=== PATIENT | male | born 1960 | race Caucasian/White ===

== ENCOUNTER 2017-10-02 16:10 | Observation (INO) | payer OTHER ==
--- NOTE | 2017-10-02 17:03 | C.PDOC ---
History Of Present Illness <Jennie Santiago - Last Filed: 10/02/17 19:03> <Janak Kirk - Last Filed: 10/02/17 20:29> 56 y/o male presents to the ER complaining of left sided chest pain which radiates to the left side- neck, left shoulder, and left arm for the past few days. Patient states that he went to his PMD and he prescribed him Naproxen without relief. Patient reports that he has some mild dizziness and he feels " heaviness" in the back of his head. Denies having SOB, cough, fever, and chills. (Jennie Santiago) History Per: Patient History/Exam Limitations: no limitations Onset/Duration Of Symptoms: Days Current Symptoms Are (Timing): Still Present Severity: Moderate <Jennie Santiago - Last Filed: 10/02/17 19:03> <Janak Kirk - Last Filed: 10/02/17 20:29> Time Seen by Provider: 10/02/17 16:18 Chief Complaint (Nursing): Chest Pain Past Medical History Reviewed: Historical Data, Nursing Documentation, Vital Signs - Medical History PMH: No Chronic Diseases Surgical History: No Surg Hx Family History: States: No Known Family Hx - Social History Hx Alcohol Use: No Hx Substance Use: No - Immunization History Hx Tetanus Toxoid Vaccination: No Hx Influenza Vaccination: No Hx Pneumococcal Vaccination: No <Jennie Santiago - Last Filed: 10/02/17 19:03> Vital Signs: Last Vital Signs Temp 98.2 F 10/02/17 19:50 Pulse 62 10/02/17 19:50 Resp 18 10/02/17 19:50 BP 117/75 10/02/17 19:50 Pulse Ox 96 10/02/17 19:50 Review Of Systems Except As Marked, All Systems Reviewed And Found Negative. Constitutional: Negative for: Fever, Chills Cardiovascular: Positive for: Chest Pain Respiratory: Negative for: Cough, Shortness of Breath Neurological: Positive for: Dizziness <Jennie Santiago - Last Filed: 10/02/17 19:03> Physical Exam - Physical Exam Appears: Non-toxic, No Acute Distress Skin: Normal Color, Warm, Diaphoretic Head: Atraumatic, Normacephalic Eye(s): bilateral: Normal Inspection Nose: Normal Oral Mucosa: Moist Neck: Supple Chest: Symmetrical Cardiovascular: Rhythm Regular Respiratory: Normal Breath Sounds, No Rales, No Rhonchi, No Wheezing Extremity: Normal ROM Neurological/Psych: Oriented x3, Normal Speech <Jennie Santiago - Last Filed: 10/02/17 19:03> ED Course And Treatment - Laboratory Results Result Diagrams: 10/02/17 17:36 10/02/17 17:36 ECG: Interpreted By Me, Viewed By Me ECG Rhythm: Sinus Rhythm Interpretation Of ECG: NSR with T wave inversion in Lead III and non specific T wave changes. Rate From EC O2 Sat by Pulse Oximetry: 97 (RA) Pulse Ox Interpretation: Normal - Radiology CXR: Interpreted by Me, Viewed By Me CXR Interpretation: Yes: No Acute Disease Progress Note: Labs, UA, EKG, and CXR ordered. Patient treated with Aspirin PO. <Jennie Santiago - Last Filed: 10/02/17 19:03> - Laboratory Results Result Diagrams: 10/02/17 17:36 10/02/17 17:36 <Janak Kirk - Last Filed: 10/02/17 20:29> Disposition - Disposition Disposition Time: 19:04 <Jennie Santiago - Last Filed: 10/02/17 19:03> Discussed With DrEloisa: Svetlana Rodriguez Comment: acceptd the pt on his service and took over the care at 8:29PM Doctor Will See Patient In The: Hospital Counseled Patient/Family Regarding: Studies Performed, Diagnosis <Janak Kirk - Last Filed: 10/02/17 20:29> - Disposition Disposition: HOSPITALIZED Condition: FAIR Forms: [facility] ([employer]) - Clinical Impression Clinical Impression: Chest pain - PA / PILLOW FILLER / Resident Statement MD/DO has reviewed & agrees with the documentation as recorded. - Scribe Statement The provider has reviewed the documentation as recorded by the Scribe <Jennie Santiago - Last Filed: 10/02/17 19:03> <Janak Kirk - Last Filed: 10/02/17 20:29> - Scribe Statement Danielito Salgado Provider Attestation All medical record entries made by the Scribe were at my direction and personally dictated by me. I have reviewed the chart and agree that the record accurately reflects my personal performance of the history, physical exam, medical decision making, and the department course for this patient. I have also personally directed, reviewed, and agree with the discharge instructions and disposition. (Jennie Santiago) Physician Patient Turnover Patient Signed Over To: Janak Kirk Handoff Comments: pending PMD call back and dispo <Jennie Santiago - Last Filed: 10/02/17 19:03> Decision To Admit <Jennie Santiago - Last Filed: 10/02/17 19:03> - Pt Status Changed To: Hospital Disposition Of: Observation - . Bed Request Type: Telemetry Admitting Physician: Svetlana Rodriguez <Janak Kirk - Last Filed: 10/02/17 20:29> - . Patient Diagnosis: Chest pain
--- NOTE | 2017-10-02 17:46 | RAD ---
Date of service: 10/02/2017 PROCEDURE: CHEST RADIOGRAPH, 1 VIEW HISTORY: chest pain COMPARISON: Chest radiograph dated 04/27/2015. FINDINGS: LUNGS: Clear. PLEURA: No pneumothorax or pleural fluid seen. CARDIOVASCULAR: Normal. OSSEOUS STRUCTURES: Unchanged. VISUALIZED UPPER ABDOMEN: Normal. OTHER FINDINGS: None. IMPRESSION: No active disease.
[2017-10-02 17:47] LABS: BASO % 0.8 % (0.0-2.0); HEMOGLOBIN 14.5 g/dL (12.0-18.0); LYMPH # 1.1 K/uL (1.0-4.3); LYMPH % 29.8 % (20.0-40.0); MEAN CELL VOLUME 91.5 fL (80.0-94.0); MEAN CORPUSCULAR HEMOGLOBIN 32.1 pg (27.0-31.0); MEAN CORPUSCULAR HGB CONC 35.1 g/dL (33.0-37.0); MEAN PLATELET VOLUME 9.8 fL (7.2-11.7); MONO # 0.3 K/uL (0.0-0.8); NEUT # 2.2 K/uL (1.8-7.0); NEUT % 61.4 % (50.0-75.0); NRBC % 0.1 % (0.0-2.0); RBC 4.52 Mil/uL (4.40-5.90); RED CELL DISTRIBUTION WIDTH 12.9 % (11.5-14.5); WHITE BLOOD COUNT 3.6 K/uL (4.8-10.8)
[2017-10-02 17:52] LABS: URINE BILIRUBIN NEGATIVE (NEGATIVE); URINE BLOOD NEGATIVE (NEGATIVE); URINE CLARITY Clear (Clear); URINE COLOR Straw (YELLOW); URINE GLUCOSE (UA) NORMAL (Normal); URINE LEUKOCYTE ESTERASE NEG Leu/uL (Negative); URINE PROTEIN NEGATIVE (NEGATIVE); URINE UROBILINOGEN NORMAL mg/dL (0.2-1.0)
[2017-10-02 17:53] LABS: PROTHROMBIN TIME 11.1 SECONDS (9.7-12.2)
[2017-10-02 17:59] LABS: ALB/GLOB RATIO 1.4 (1.0-2.1); ALBUMIN 3.9 g/dL (3.5-5.0); ALT/SGPT 40 U/L (21-72); AST/SGOT 22 U/L (17-59); BLOOD UREA NITROGEN 19 mg/dL (9-20); CALCIUM 8.8 mg/dl (8.6-10.4); GFR AFRICAN-AMERICAN > 60; GFR NON-AFRICAN AMERICAN > 60
[2017-10-02 18:09] LABS: CK-MB 0.82 ng/mL (0.0-3.38)
[2017-10-02] MEDS ORDERED: Morphine 4 MG/ML VIAL ONE (18:40)
[2017-10-03 01:55] LABS: CK-MB 0.66 ng/mL (0.0-3.38)
[2017-10-03 07:17] LABS: BASO % 0.5 % (0.0-2.0); EOS # 0.1 K/uL (0.0-0.7); EOS % 1.3 % (0.0-4.0); HEMOGLOBIN 15.1 g/dL (12.0-18.0); LYMPH # 1.7 K/uL (1.0-4.3); LYMPH % 29.6 % (20.0-40.0); MEAN CELL VOLUME 91.6 fL (80.0-94.0); MEAN CORPUSCULAR HEMOGLOBIN 31.9 pg (27.0-31.0); MEAN CORPUSCULAR HGB CONC 34.9 g/dL (33.0-37.0); MEAN PLATELET VOLUME 10.1 fL (7.2-11.7); MONO # 0.4 K/uL (0.0-0.8); MONO % 6.8 % (0.0-10.0); NEUT # 3.5 K/uL (1.8-7.0); NEUT % 61.8 % (50.0-75.0); NRBC % 0.3 % (0.0-2.0); RBC 4.71 Mil/uL (4.40-5.90); RED CELL DISTRIBUTION WIDTH 12.7 % (11.5-14.5); WHITE BLOOD COUNT 5.7 K/uL (4.8-10.8)
[2017-10-03 08:06] LABS: ALB/GLOB RATIO 1.4 (1.0-2.1); ALBUMIN 3.9 g/dL (3.5-5.0); ALT/SGPT 37 U/L (21-72); AST/SGOT 22 U/L (17-59); BLOOD UREA NITROGEN 19 mg/dL (9-20); CALCIUM 8.7 mg/dl (8.6-10.4); GFR AFRICAN-AMERICAN > 60; GFR NON-AFRICAN AMERICAN > 60
[2017-10-03 11:26] LABS: CK-MB 0.65 ng/mL (0.0-3.38)
--- NOTE | 2017-10-03 13:43 | CARD ---
APPROVED REPORT Date of service: 10/03/2017 EXAM: Two-dimensional and M-mode echocardiogram with Doppler and color Doppler. Other Information Quality : GoodRhythm : NSR INDICATION Chest Pain M-Mode DIMENSIONS RVDd1.77 (2.1-3.2cm)Left Atrium (MM)3.76 (2.5-4.0cm) IVSd1.07 (0.7-1.1cm)Aortic Root3.28 (2.2-3.7cm) LVDd5.46 (4.0-5.6cm)Aortic Cusp Exc.1.81 (1.5-2.0cm) PWd1.22 (0.7-1.1cm)FS (%) 47 % LVDs2.88 (2.0-3.8cm)LVEF (%)78 (>50%) Aortic Valve AoV Peak Muhnyjkx329.0cm/Nico Peak GR.6mmHg Mitral Valve MV E Pfocjhdz62.2cm/sMV A Ikwolodu38.6cm/sE/A ratio0.9 TDI E/Lateral E'0.0E/Medial E'0.0 Tricuspid Valve TR Peak Bniutuuv932ua/sTR Peak Gr.67uiBlMRGR95pcVp <Conclusion> normal size la,lv & ra rv. mild concentric lvh with normal lvef of 65-70%. normal lv diastolic function. normal rv systolic function. normal aortic,mitral,tv & pv. trace tr,pi & mr with normal pulmonary systolic pressures of 31 mm of hg. normal size aortic root. no pericardial effusion seen.
--- NOTE | 2017-10-03 14:51 | CP.PCM.HP ---
History of Present Illness - History of Present Illness History of Present Illness: COMPREHENSIVE HISTORY & PHYSICAL EXAM HPI Patient was admitted from the emergency room with chest pain. Few days ago patient was complaining of retrosternal left-sided chest pain. The chest pain was radiating to left arm the left neck associated with mild diaphoresis. Patient presented to [facility] ER there was some ST-T changes first set of cardiac enzymes are negative. Patient is admitted for further workup for coronary artery disease PAST HIST. Currently patient does not have any major coronary artery disease risk factors. Negative smoking hypertension diabetes or any family history of coronary artery disease or sudden . PERSONAL HIST: Smoking. N Alcohol. N Allergy N Travel_- . FAMILY HIST : ROS : Constitutional: Negative for weight change, chills, night sweats, fatigue and usage of assist device. Eyes: Negative for redness, swelling, itching, discharge, vision changes, blurry vision, double vision, glaucoma, cataracts, Ears: Negative for hearing loss, ringing, , tinnitus, vertigo Nose: Negative for rhinorrhea, stuffiness, sniffing, itching, postnasal drip, discoloration, nasal congestion and epistaxis. Throat: Negative for throat clearing, sore throat, hoarseness, difficulty swallowing and difficulty speaking. Respiratory: Negative for cough, , sputum production, chest tightness, wheezing, pleuritic chest pain ,daytime somnolence, chronic cough, hemoptysis, snoring at night, Cardiovascular: Negative, PND, Edema of legs, leg cramps, angina, claudication , , irregular heartbeat, Neurology: Negative for irritability, muscle weakness, numbness and tingling, seizures, tremors, migraines, slurred speech, syncope, memory loss, mood changes , recurrent headaches Gastrointestinal: Negative for difficulty swallowing, diarrhea, constipation, black stools, rectal bleeding, nausea, flatulence, reflux, poor appetite, changes in bowel habits, abdominal pain Genitourinary: Negative for frequent urination, hematuria, discharge, incontinence, urinary retention, frequent UTI, Psychiatric: Negative for depression, anxiety/panic, suicidal tendencies, Musculoskeletal: Negative for swollen joints, back pain, , neck pain, morning stiffness of joints, . Skin: Negative for rash, ulcers, itching, dry skin and pigmented lesions. P/E: Constitutional: Appears stated age and in no apparent distress. Head: Normocephalic. Ears: External ear canals patent without inflammation. Tympanic membranes intact with normal light reflex and landmark. Eyes: Pupils are central, bilaterally equal, symmetrical and reacts to light with normal movements and no icterus or pallor. Nose: External nares are patent. Mucosa is pink Mouth-Throat: Good general appearance and condition. No post-pharyngeal/oropharyngeal erythema and tonsillar hypertrophy. Good dental hygiene. Neck-Lymphatic: Neck is supple with normal ROM, no thyromegaly, lymph nodes or masses. JVD is normal with no carotid bruit. Lungs: Clear to percussion and auscultation with bilateral normal air entry. Cardiovascular: S1 and S2 are normal with no murmurs, gallops and rub. GI Exam: No hepatomegaly. Abdomen is soft and non-tender. No Organomegaly , masses or hernias are evident and bowel sounds are normal and active. Neurology: Higher function and all cranial nerves intact, with no gross motor or sensory deficit. Superficial and deep reflexes are normal with downwards planters. No cerebellar deficit with normal gait. Musculoskeletal: No tender spots with normal curvature of the spine with no swelling or restricted ROM of the small and large joints. Extremities: Homans sign absent. Intact pulses with no pitting edema, calf tenderness or skin color changes. Skin: No rash, eruptions or abnormal skin pigmentation LAB/RADIOLOGY: ASSESMENT : Acute coronary syndrome PLAN: Monitor in telemetry bed. Morphine sulfate for the pain. Aspirin and subcu heparin and echocardiographic. Present on Admission - Present on Admission Any Indicators Present on Admission: No Past Patient History - Infectious Disease Hx of Infectious Diseases: None - Past Social History Smoking Status: Never Smoked - PSYCHIATRIC Hx Substance Use: No - SURGICAL HISTORY Other/Comment: Rt. eye surgery 2004 - ANESTHESIA Hx Anesthesia: No Hx Anesthesia Reactions: No Meds Allergies/Adverse Reactions: Allergies Allergy/AdvReac Type Severity Reaction Status Date / Time No Known Allergies Allergy Verified 10/02/17 16:15 Results - Vital Signs Recent Vital Signs: Last Vital Signs Temp 97.8 F 10/03/17 07:06 Pulse 56 L 10/03/17 07:06 Resp 20 10/03/17 07:06 BP 117/73 10/03/17 07:06 Pulse Ox 97 10/03/17 07:06 - Labs Result Diagrams: 10/03/17 06:55 10/03/17 06:55 Labs: Laboratory Results - last 24 hr 10/02/17 10/02/17 10/02/17 17:36 17:36 17:36 WBC 3.6 L RBC 4.52 Hgb 14.5 Hct 41.3 MCV 91.5 MCH 32.1 H MCHC 35.1 RDW 12.9 Plt Count 149 MPV 9.8 Neut % (Auto) 61.4 Lymph % (Auto) 29.8 [place] % (Auto) 7.0 Eos % (Auto) 1.0 Baso % (Auto) 0.8 Neut # (Auto) 2.2 Lymph # (Auto) 1.1 [place] # (Auto) 0.3 Eos # (Auto) 0.0 Baso # (Auto) 0.0 PT 11.1 INR 1.0 APTT 31 Sodium Potassium Chloride Carbon Dioxide Anion Gap BUN Creatinine Est GFR ( Amer) Est GFR (Non-Af Amer) Random Glucose Calcium Total Bilirubin AST ALT Alkaline Phosphatase Total Creatine Kinase CK-MB (Mass) Troponin I Total Protein Albumin Globulin Albumin/Globulin Ratio Urine Color Straw Urine Clarity Clear Urine pH 8.0 Ur Specific [place] 1.008 Urine Protein Negative Urine Glucose (UA) Normal Urine Ketones Negative Urine Blood Negative Urine Nitrate Negative Urine Bilirubin Negative Urine Urobilinogen Normal Ur Leukocyte Esterase Neg Urine RBC (Auto) < 1 10/02/17 10/03/17 10/03/17 17:36 01:18 06:55 WBC 5.7 D RBC 4.71 Hgb 15.1 Hct 43.1 MCV 91.6 MCH 31.9 H MCHC 34.9 RDW 12.7 Plt Count 161 MPV 10.1 Neut % (Auto) 61.8 Lymph % (Auto) 29.6 [place] % (Auto) 6.8 Eos % (Auto) 1.3 Baso % (Auto) 0.5 Neut # (Auto) 3.5 Lymph # (Auto) 1.7 [place] # (Auto) 0.4 Eos # (Auto) 0.1 Baso # (Auto) 0.0 PT INR APTT Sodium 141 Potassium 3.9 Chloride 107 Carbon Dioxide 24 Anion Gap 15 BUN 19 Creatinine 1.0 Est GFR ( Amer) > 60 Est GFR (Non-Af Amer) > 60 Random Glucose 102 Calcium 8.8 Total Bilirubin 1.4 H AST 22 ALT 40 Alkaline Phosphatase 73 Total Creatine Kinase 111 83 CK-MB (Mass) 0.82 0.66 Troponin I < 0.0120 < 0.0120 Total Protein 6.7 Albumin 3.9 Globulin 2.7 Albumin/Globulin Ratio 1.4 Urine Color Urine Clarity Urine pH Ur Specific [place] Urine Protein Urine Glucose (UA) Urine Ketones Urine Blood Urine Nitrate Urine Bilirubin Urine Urobilinogen Ur Leukocyte Esterase Urine RBC (Auto) 10/03/17 10/03/17 06:55 10:52 WBC RBC Hgb Hct MCV MCH MCHC RDW Plt Count MPV Neut % (Auto) Lymph % (Auto) [place] % (Auto) Eos % (Auto) Baso % (Auto) Neut # (Auto) Lymph # (Auto) [place] # (Auto) Eos # (Auto) Baso # (Auto) PT INR APTT Sodium 141 Potassium 3.9 Chloride 106 Carbon Dioxide 24 Anion Gap 16 BUN 19 Creatinine 0.9 Est GFR ( Amer) > 60 Est GFR (Non-Af Amer) > 60 Random Glucose 90 Calcium 8.7 Total Bilirubin 1.4 H AST 22 ALT 37 Alkaline Phosphatase 75 Total Creatine Kinase 92 CK-MB (Mass) 0.65 Troponin I < 0.0120 Total Protein 6.8 Albumin 3.9 Globulin 2.9 Albumin/Globulin Ratio 1.4 Urine Color Urine Clarity Urine pH Ur Specific [place] Urine Protein Urine Glucose (UA) Urine Ketones Urine Blood Urine Nitrate Urine Bilirubin Urine Urobilinogen Ur Leukocyte Esterase Urine RBC (Auto)
[2017-10-03] MEDS ORDERED: oxyCODONE 5 mg Immediate Release Tab PO PRN (18:44)
[2017-10-03] MEDS ORDERED: Morphine 4 MG/ML VIAL IVP PRN (21:00)
[2017-10-04] MEDS ORDERED: Pneumococcal 23-Valent Vaccine IM ONE (10:00)
--- NOTE | 2017-10-04 15:01 | CP.PCM.PN ---
Subjective - Date & Time of Evaluation Date of Evaluation: 10/04/17 Time of Evaluation: 15:00 - Subjective Subjective: patient is still complaining of pain in the neck region radiating to both shoulder and anterior chest. Vital signs are stable Physical examination unchanged Panic enzymes 3 is negative Patient on oxycodone will observe the symptoms. Objective - Vital Signs/Intake and Output Vital Signs (last 24 hours): Temp Pulse Resp BP Pulse Ox 98.1 F 61 18 106/64 96 10/04/17 07:06 10/04/17 07:40 10/04/17 07:06 10/04/17 07:06 10/04/17 07:06 - Medications Medications: Current Medications Aspirin (Aspirin) 325 mg PO DAILY [facility] Last Admin: 10/04/17 09:57 Dose: 325 mg Heparin Sodium (Porcine) (Heparin) 5,000 units SC BID [facility] Last Admin: 10/04/17 09:57 Dose: 5,000 units Morphine Sulfate (Morphine) 4 mg IVP Q4H PRN PRN Reason: Pain, severe (8-10) Oxycodone HCl (Oxycodone Immediate Release Tab) 10 mg PO Q6 PRN PRN Reason: Pain, moderate (4-7) - Labs Labs: 10/03/17 06:55 10/03/17 06:55 PT 11.1 SECONDS (9.7-12.2) 10/02/17 17:36 INR 1.0 10/02/17 17:36 APTT 31 SECONDS (21-34) 10/02/17 17:36
[2017-10-05 00:29] VITALS: O2SAT 97
[2017-10-05 08:25] VITALS: BP 99/57; PULSE 51; RESP 18; TEMP 98.2
--- NOTE | 2017-10-05 14:00 | CP.PCM.DIS ---
Provider - Provider Date of Admission: 10/02/17 20:27 Attending physician: Svetlana Rodriguez MD Time Spent in preparation of Discharge (in minutes): 35 Hospital Course - Lab Results Lab Results: Most Recent Lab Values WBC 5.7 K/uL (4.8-10.8) D 10/03/17 06:55 RBC 4.71 Mil/uL (4.40-5.90) 10/03/17 06:55 Hgb 15.1 g/dL (12.0-18.0) 10/03/17 06:55 Hct 43.1 % (35.0-51.0) 10/03/17 06:55 MCV 91.6 fL (80.0-94.0) 10/03/17 06:55 MCH 31.9 pg (27.0-31.0) H 10/03/17 06:55 MCHC 34.9 g/dL (33.0-37.0) 10/03/17 06:55 RDW 12.7 % (11.5-14.5) 10/03/17 06:55 Plt Count 161 K/uL (130-400) 10/03/17 06:55 MPV 10.1 fL (7.2-11.7) 10/03/17 06:55 Neut % (Auto) 61.8 % (50.0-75.0) 10/03/17 06:55 Lymph % (Auto) 29.6 % (20.0-40.0) 10/03/17 06:55 [place] % (Auto) 6.8 % (0.0-10.0) 10/03/17 06:55 Eos % (Auto) 1.3 % (0.0-4.0) 10/03/17 06:55 Baso % (Auto) 0.5 % (0.0-2.0) 10/03/17 06:55 Neut # (Auto) 3.5 K/uL (1.8-7.0) 10/03/17 06:55 Lymph # (Auto) 1.7 K/uL (1.0-4.3) 10/03/17 06:55 [place] # (Auto) 0.4 K/uL (0.0-0.8) 10/03/17 06:55 Eos # (Auto) 0.1 K/uL (0.0-0.7) 10/03/17 06:55 Baso # (Auto) 0.0 K/uL (0.0-0.2) 10/03/17 06:55 PT 11.1 SECONDS (9.7-12.2) 10/02/17 17:36 INR 1.0 10/02/17 17:36 APTT 31 SECONDS (21-34) 10/02/17 17:36 Sodium 141 mmol/L (132-148) 10/03/17 06:55 Potassium 3.9 mmol/L (3.6-5.2) 10/03/17 06:55 Chloride 106 mmol/L (98-107) 10/03/17 06:55 Carbon Dioxide 24 mmol/L (22-30) 10/03/17 06:55 Anion Gap 16 (10-20) 10/03/17 06:55 BUN 19 mg/dL (9-20) 10/03/17 06:55 Creatinine 0.9 mg/dL (0.8-1.5) 10/03/17 06:55 Est GFR ( Amer) > 60 10/03/17 06:55 Est GFR (Non-Af Amer) > 60 10/03/17 06:55 POC Glucose (mg/dL) 93 mg/dL (65-110) 10/04/17 11:03 Random Glucose 90 mg/dL (75-110) 10/03/17 06:55 Calcium 8.7 mg/dl (8.6-10.4) 10/03/17 06:55 Total Bilirubin 1.4 mg/dL (0.2-1.3) H 10/03/17 06:55 AST 22 U/L (17-59) 10/03/17 06:55 ALT 37 U/L (21-72) 10/03/17 06:55 Alkaline Phosphatase 75 U/L (38-126) 10/03/17 06:55 Total Creatine Kinase 92 U/L (55-170) 10/03/17 10:52 CK-MB (Mass) 0.65 ng/mL (0.0-3.38) 10/03/17 10:52 Troponin I < 0.0120 ng/mL (0.00-0.120) 10/03/17 10:52 Total Protein 6.8 g/dL (6.3-8.3) 10/03/17 06:55 Albumin 3.9 g/dL (3.5-5.0) 10/03/17 06:55 Globulin 2.9 gm/dL (2.2-3.9) 10/03/17 06:55 Albumin/Globulin Ratio 1.4 (1.0-2.1) 10/03/17 06:55 Urine Color Straw (YELLOW) 10/02/17 17:36 Urine Clarity Clear (Clear) 10/02/17 17:36 Urine pH 8.0 (5.0-8.0) 10/02/17 17:36 Ur Specific [place] 1.008 (1.003-1.030) 10/02/17 17:36 Urine Protein Negative mg/dL (NEGATIVE) 10/02/17 17:36 Urine Glucose (UA) Normal mg/dL (Normal) 10/02/17 17:36 Urine Ketones Negative mg/dL (NEGATIVE) 10/02/17 17:36 Urine Blood Negative (NEGATIVE) 10/02/17 17:36 Urine Nitrate Negative (NEGATIVE) 10/02/17 17:36 Urine Bilirubin Negative (NEGATIVE) 10/02/17 17:36 Urine Urobilinogen Normal mg/dL (0.2-1.0) 10/02/17 17:36 Ur Leukocyte Esterase Neg Stephane/uL (Negative) 10/02/17 17:36 Urine RBC (Auto) < 1 /hpf (0-3) 10/02/17 17:36 - Hospital Course Hospital Course: Patient was admitted from the emergency room with chest pain. Few days ago patient was complaining of retrosternal left-sided chest pain. The chest pain was radiating to left arm the left neck associated with mild diaphoresis. Patient presented to [facility] ER there was some ST-T changes first set of cardiac enzymes are negative. Patient is admitted for further workup for coronary artery disease PAST HIST. Currently patient does not have any major coronary artery disease risk factors. Negative smoking hypertension diabetes or any family history of coronary artery disease or sudden . patient was observed on the telemetry there was no any evidence of arrhythmia. Cardiac enzymes TNI 3 were negative EKG remained same with some ST-T flattening on the anterolateral leads. Echocardiogram showed no wall motion abnormality. Patient was given oxycodone with improvement of his pain especially in the neck and the shoulder region. Patient is stable will be discharged will be followed in outpatient for a stress test. Discharge Plan - Follow Up Plan Condition: FAIR Disposition: HOME/ ROUTINE
--- NOTE | 2017-10-05 15:58 | CP.PCM.PN ---
Subjective - Date & Time of Evaluation Date of Evaluation: 10/05/17 Time of Evaluation: 12:30 - Subjective Subjective: Patient seen today, denies any chest beltrán, sob , dizziness, palpitations, No overnigh t events reported by RN TROPONIN X 3 - NEGATIVE Objective - Vital Signs/Intake and Output Vital Signs (last 24 hours): Temp Pulse Resp BP Pulse Ox 98.2 F 51 L 18 99/57 L 97 10/05/17 07:25 10/05/17 07:25 10/05/17 07:25 10/05/17 07:25 10/05/17 07:25 Intake and Output: 10/05/17 10/05/17 06:59 18:59 Intake Total 120 780 Balance 120 780 - Labs Labs: 10/03/17 06:55 10/03/17 06:55 PT 11.1 SECONDS (9.7-12.2) 10/02/17 17:36 INR 1.0 10/02/17 17:36 APTT 31 SECONDS (21-34) 10/02/17 17:36 Assessment and Plan - Assessment and Plan (Free Text) Assessment: A/P 56 y/o male admitted with left sided chest pain which radiates to the left side- neck, left shoulder, and left arm for the past few days. troponin x 3 - negative D/w Dr. Rodriguez cleared fro discharge home today and f/u with Dr. Rodriguez office tomorrow Discharge plan discussed with patient who understands and agrees wiht plan
--- NOTE | 2017-10-06 15:00 | CARD ---
APPROVED REPORT Date of service: 10/03/2017 EKG Measurement Heart [id number] <Conclusion> Sinus bradycardia Nonspecific T wave abnormality Abnormal ECG
--- NOTE | 2017-10-06 15:01 | CARD ---
APPROVED REPORT Date of service: 10/02/2017 EKG Measurement Heart [id number] <Conclusion> Normal sinus rhythm Nonspecific T wave abnormality Abnormal ECG
== END 2017-10-05 15:17 | disposition home or self-care (01) ==
LOC: C.ER 16:10 → C.9E 20:27 → C.6T 21:37
PROVIDERS: ADMIT Internal Medicine Cardiovascular Disease; ATTEND Internal Medicine Cardiovascular Disease
DX: I24.9 Acute ischemic heart disease, unspecified (principal)
CPT/HCPCS: 36415; 71045; 80053; 81001; 82550; 82553; 82948; 84484; 85025; 85610; 85730; 93005; 93306; 96374; 99285; G0378; J1644; J2270

== ENCOUNTER 2018-08-03 18:49 | Emergency (ER) | payer OTHER ==
[2018-08-03 19:27] VITALS: BMI 25.1
[2018-08-03 19:31] VITALS: BP 133/82; PULSE 66; RESP 19; TEMP 98; O2SAT 98
[2018-08-03] MEDS ORDERED: Aluminum Hydroxide/Magnesium Hydroxide Susp (30 mL) PO STA (20:03)
--- NOTE | 2018-08-03 20:03 | C.PDOC ---
History Of Present Illness 57 year old male presents with epigastric pain discomfort radiating up to his throat for the past 10 days. Patient states he feels throat discomfort when trying to swallow his saliva but is able to swallow food without difficulty. He was seen by his doctor who started him on amoxicillin and a "medication for throat pain" which he has been taking for the past 10 days with no relief. He reports the pain is worse in the morning and he wakes up with a sour taste in his mouth. Denies nausea, vomiting, or other complaints. Time Seen by Provider: 08/03/18 19:31 Chief Complaint (Nursing): Abdominal Pain History Per: Patient History/Exam Limitations: no limitations Onset/Duration Of Symptoms: Days (10) Current Symptoms Are (Timing): Still Present Recent travel outside of the [place]: No Past Medical History Reviewed: Historical Data, Nursing Documentation, Vital Signs Vital Signs: Last Vital Signs Temp 98.0 F 08/03/18 19:27 Pulse 66 08/03/18 19:27 Resp 19 08/03/18 19:27 BP 133/82 08/03/18 19:27 Pulse Ox 98 08/03/18 19:27 Primary Care Provider: Juan Perez - Medical History PMH: Hypercholesterolemia Family History: States: Unknown Family Hx - Social History Hx Alcohol Use: No Hx Substance Use: No - Immunization History Hx Tetanus Toxoid Vaccination: No Hx Influenza Vaccination: No Hx Pneumococcal Vaccination: No Review Of Systems Except As Marked, All Systems Reviewed And Found Negative. Constitutional: Negative for: Fever, Chills Gastrointestinal: Positive for: Abdominal Pain. Negative for: Nausea, Vomiting Physical Exam - Physical Exam Appears: Non-toxic, No Acute Distress Skin: Normal Color, Warm Head: Atraumatic, Normacephalic Eye(s): bilateral: Normal Inspection Oral Mucosa: Moist Throat: Normal, No Erythema, No Exudate Neck: Normal, No Midline Cervical Tenderness, No Paracervical Tenderness, Supple Chest: Symmetrical, No Tenderness Cardiovascular: Rhythm Regular Respiratory: Normal Breath Sounds, No Rales, No Rhonchi, No Wheezing Gastrointestinal/Abdominal: Soft, No Tenderness Neurological/Psych: Oriented x3, Normal Speech ED Course And Treatment O2 Sat by Pulse Oximetry: 98 (Room air) Pulse Ox Interpretation: Normal Medical Decision Making Medical Decision Making: Plan: * Viscous lidocaine * Maalox * Pepcid Disposition Counseled Patient/Family Regarding: Diagnosis, Need For Followup, Rx Given - Disposition Referrals: [facility] [Outside] [facility] [Outside] Disposition: HOME/ ROUTINE Disposition Time: 20:02 Condition: IMPROVED Prescriptions: Aluminum Hydroxide/Magnesium H [Maalox 30 ml] 1 bot PO DAILY #1 bot Famotidine [Pepcid AC] 10 mg PO QN #30 tablet Omeprazole Magnesium [Prilosec Otc] 20 mg PO QPM #30 tab Instructions: Acid Reflux (Gastroesophageal Reflux Disease) in Adults Forms: [employer] ([place]in), Work Excuse Print Language: PORTUGUESE - Clinical Impression Clinical Impression: Sore throat, GERD (gastroesophageal reflux disease) - Scribe Statement The provider has reviewed the documentation as recorded by the Scribe Vignesh Hernandez All medical record entries made by the Scribe were at my direction and personally dictated by me. I have reviewed the chart and agree that the record accurately reflects my personal performance of the history, physical exam, medical decision making, and the department course for this patient. I have also personally directed, reviewed, and agree with the discharge instructions and disposition.
[2018-08-03] MEDS ORDERED: Aluminum Hydroxide/Magnesium Hydroxide Susp (30 mL) ONE (20:11)
== END 2018-08-03 20:23 | disposition home or self-care (01) ==
LOC: C.ER 18:49
DX: K21.9 Gastro-esophageal reflux disease without esophagitis (principal); J02.9 Acute pharyngitis, unspecified; E78.00 Pure hypercholesterolemia, unspecified